=== PATIENT | female | born 1945 | race Caucasian/White ===

== ENCOUNTER 2021-02-14 16:13 | Emergency (ER) | payer OTHER ==
--- NOTE | 2021-02-14 17:49 | RAD REPORT ---
EXAM DESCRIPTION: USExtremity Venous Uni Ltd02/14/2021 5:25 pm CLINICAL HISTORY: left leg pain COMPARISON: None. FINDINGS: Left common femoral, superficial femoral, popliteal and posterior tibial veins are compre ssible and demonstrate augmentation. Doppler demonstrates good flow. IMPRESSION: No evidence of deep venous thrombosis involving the left lower extremity.
--- NOTE | 2021-02-14 18:23 | EDPHYS ---
Physician Documentation [facility] Name: Oliva Franklin Age: 75 yrs Sex: Female : 1945 Arrival Date: 02/14/2021 Time: 16:18 Bed 18 Private MD: ED Physician Paul Cheema HPI: 02/14 18:16 This 75 yrs old Female presents to ER via Wheelchair with complaints of Leg jmm Pain. 18:16 The patient presents with pain. Onset: The symptoms/episode began/occurred 3 day(s) jmm ago. Modifying factors: The symptoms are alleviated by remaining still, the symptoms are aggravated by movement. Associated signs and symptoms: Pertinent negatives fever, swelling, tingling, vomiting, warmth, weakness. This is a 75 year old female with a history of hlp, CVA, HTN that presents to the ED with complaints of left thigh pain beginning approx 3 days ago. Denies known injury. Was evaluated in [place] with negative xray. Family concerned patient may have a dvt.. Historical: - Allergies: 16:47 No Known Allergies; aa5 - PMHx: 16:47 Hypertension; Hyperlipidemia; aa5 16:47 CVA; aa5 - Immunization history:: Adult Immunizations unknown. - Social history:: Smoking status: Patient denies any tobacco usage or history of. ROS: 18:16 Constitutional: Negative for fever, chills, and weight loss, Cardiovascular: Negative jmm for chest pain, palpitations, and edema, Respiratory: Negative for shortness of breath, cough, wheezing, and pleuritic chest pain. 18:16 MS/extremity: Positive for pain. 18:16 All other systems are negative. Exam: 18:16 Constitutional: This is a well developed, well nourished patient who is awake, alert, jmm and in no acute distress. Head/Face: atraumatic. Eyes: EOMI, no conjunctival erythema appreciated ENT: Moist Mucus Membranes Neck: Trachea midline, Supple Chest/axilla: Normal chest wall appearance and motion. Cardiovascular: Regular rate and rhythm. No edema appreciated Respiratory: Normal respirations, no respiratory distress appreciated Abdomen/GI: Non distended, soft Back: Normal ROM Skin: General appearance color normal 18:16 Musculoskeletal/extremity: left thigh pain on rom of the left hip, compartments are soft, dorsalis pulse intact, NVI. 18:16 Skin: Appearance: Color: normal in color. 18:16 Neuro: Orientation: is normal, Mentation: is normal, Memory: is normal. 18:16 Psych: Behavior/mood is pleasant, cooperative. Vital Signs: 16:45 BP 126 / 43; Pulse 87; Resp 18 S; Temp 98.2(TE); Pulse Ox 98% on R/A; Weight 58.97 kg aa5 (R); Height 5 ft. 1 in. (154.94 cm) (R); 16:45 Body Mass Index 24.56 (58.97 kg, 154.94 cm) aa5 MDM: 17:48 Patient medically screened. [facility] 18:19 Data reviewed: vital signs, nurses notes. Counseling: I had a detailed discussion with melissa the patient and/or guardian regarding: the historical points, exam findings, and any diagnostic results supporting the discharge/admit diagnosis, lab results, radiology results, the need for outpatient follow up, to return to the emergency department if symptoms worsen or persist or if there are any questions or concerns that arise at home. ED course: Patient is alert and non toxic in appearance in the ED. No signs of sepsis. US negative. patient advised to follow up with ortho and otherwise given strict return precautions. patient understood and agrees with the plan of care. . 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 . 02/14 16:49 Order name: US Extremity Venous Unilateral Ltd; Complete Time: 17:51 aa5 Administered Medications: No medications were administered Disposition: 02/14/21 18:23 Discharged to Home. Impression: Strain of muscle, fascia and tendon of left hip. - Condition is Stable. - Discharge Instructions: Hip Pain. - Prescriptions for Tylenol- Codeine #3 300-30 mg Oral Tablet - take 1 tablet by ORAL route every 4-6 hours As needed; 12 tablet. orphenadrine citrate 100 mg Oral Tablet Sustained Release - take 1 tablet by ORAL route 2 times per day As needed; 20 tablet. - Medication Reconciliation Form, Thank You Letter, Antibiotic Education, Prescription Opioid Use form. - Follow up: Tyrel Mckinney MD; When: 1 - 2 days; Reason: Recheck today's complaints, Continuance of care, Re-evaluation by your physician. Follow up: Seferino Strickland MD; When: 1 - 2 days; Reason: Recheck today's complaints, Continuance of care, Re-evaluation by your physician. Follow up: Carter Neri MD; When: 1 - 2 days; Reason: Recheck today's complaints, Continuance of care, Re-evaluation by your physician. Addendum: 02/16/2021 07:49 Co-signature as Attending Physician, Paul Cheema MD I agree with the assessment and c pavon plan of care. Signatures: Dispatcher [employer] EDNC Paul Cheema MD MD cha Mickail, Joel, PA PA jmm Calderon, Audri, RN RN aa5 Noemi Ghosh RN RN tr6 Corrections: (The following items were deleted from the chart) 02/14 19:08 18:23 02/14/2021 18:23 Discharged to Home. Impression: Strain of muscle, fascia and tr6 tendon of left hip. Condition is Stable. Forms are Medication Reconciliation Form, Thank You Letter, Antibiotic Education, Prescription Opioid Use. Follow up: Dr. Tyrel Mckinney; When: 1 - 2 days; Reason: Recheck today's complaints, Continuance of care, Re-evaluation by your physician. Follow up: Seferino Strickland; When: 1 - 2 days; Reason: Recheck today's complaints, Continuance of care, Re-evaluation by your physician. Follow up: Carter Neri; When: 1 - 2 days; Reason: Recheck today's complaints, Continuance of care, Re-evaluation by your physician. [facility]
--- NOTE | 2021-02-14 18:23 | ER ---
Nurse's Notes [facility] Name: Oliva Franklin Age: 75 yrs Sex: Female : 1945 Arrival Date: 02/14/2021 Time: 16:18 Bed 18 Private MD: Diagnosis: Strain of muscle, fascia and tendon of left hip Presentation: 02/14 16:45 Chief complaint: Patient states: left leg pain that began "months ago". Pt reports aa5 getting worse. Pt reports she flew to [place] 1 week ago, had x-ray and CT scan in [place] without significant findings. Coronavirus screen: Client denies travel out of the [place] in the last 14 days. Ebola Screen: Patient negative for fever greater than or equal to 101.5 degrees Fahrenheit, and additional compatible Ebola Virus Disease symptoms. Initial Sepsis Screen: Does the patient meet any 2 criteria? No. Patient's initial sepsis screen is negative. Does the patient have a suspected source of infection? No. Patient's initial sepsis screen is negative. Risk Assessment: Do you want to hurt yourself or someone else? Patient reports no desire to harm self or others. Onset of symptoms is unknown. 16:45 Method Of Arrival: Wheelchair aa5 16:45 Acuity: CATALINO 3 aa5 Historical: - Allergies: 16:47 No Known Allergies; aa5 - PMHx: 16:47 Hypertension; Hyperlipidemia; aa5 16:47 CVA; aa5 - Immunization history:: Adult Immunizations unknown. - Social history:: Smoking status: Patient denies any tobacco usage or history of. Vital Signs: 16:45 BP 126 / 43; Pulse 87; Resp 18 S; Temp 98.2(TE); Pulse Ox 98% on R/A; Weight 58.97 kg aa5 (R); Height 5 ft. 1 in. (154.94 cm) (R); 16:45 Body Mass Index 24.56 (58.97 kg, 154.94 cm) aa5 ED Course: 16:18 Patient arrived in ED. rg4 16:45 Arm band placed on. aa5 16:47 Triage completed. aa5 17:25 US Extremity Venous Unilateral Ltd In Process Unspecified. EDMS 17:45 Noemi Ghosh RN is Primary Nurse. tr6 17:48 Jose R Laboy PA is PHCP. [facility] 17:48 Paul Cheema MD is Attending Physician. jmm 18:22 Tyrel Mckinney MD is Referral Physician. jmm 18:22 Seferino Strickland MD is Referral Physician. jmm 18:23 Carter Neri MD is Referral Physician. jmm Administered Medications: No medications were administered Outcome: 18: Discharge ordered by MD. jmm 19:08 Patient left the ED. tr6 Signatures: Dispatcher [employer] EDMS Jose R Laboy PA PA jmSharee Lee, RN RN Lindsay Banda 4 Noemi Ghosh RN RN tr6
[2021-02-14 19:17] VITALS: BP 126/43; TEMP 98.2; O2SAT 98
== END 2021-02-14 19:08 | disposition home or self-care (01) ==
LOC: ER 16:13
DX: S76.012A Strain of muscle, fascia and tendon of left hip, initial encounter (principal); I10 Essential (primary) hypertension; Z86.73 Personal history of transient ischemic attack (TIA), and cerebral infarction without residual deficits
CPT/HCPCS: 93971; 99282

== ENCOUNTER 2023-02-21 21:53 | Emergency (ER) | payer OTHER ==
[2023-02-21] MEDS ORDERED: ACETAMINOPHEN 500 MG TAB ONE (22:27)
[2023-02-21 22:45] LABS: Absolute Lymphocytes (CBC) 2.7 K/uL (0.7-4.9); Hematocrit 39.7 % (36.0-45.0); Lymphocytes % 33.2 % (15.3-44.8); MCV 89.2 fL (80-100); MPV 6.4 fL (7.6-11.3); RBC Red Blood Cell Count 4.45 M/uL (3.86-4.86)
--- NOTE | 2023-02-21 22:49 | RAD REPORT ---
EXAM DESCRIPTION: Claudia Single View02/21/2023 10:36 pm CLINICAL HISTORY: CHEST PAIN COMPARISON: No comparisons TECHNIQUE: Portable AP view of the chest. FINDINGS: The lungs are clear. No pneumothorax or effusion. The cardiomediastinal contours are unre markable. IMPRESSION: No acute cardiopulmonary process.
[2023-02-21 22:59] LABS: Albumin 3.5 g/dL (3.4-5.0); Bilirubin Total 0.9 mg/dL (0.2-1.0); Potassium 3.9 mEq/L (3.5-5.1); Protein, Total 7.5 g/dL (6.4-8.2); Troponin High Sensitivity 5.4 pg/mL (<58.9)
--- NOTE | 2023-02-22 00:55 | ER ---
Nurse's Notes [facility] Name: Oliva Franklin Age: 77 yrs Sex: Female : 1945 Arrival Date: 02/21/2023 Time: 21:53 Bed 7 Private MD: Diagnosis: Chest pain, unspecified Presentation: 02/21 21:59 Chief complaint: EMS states: She has left arm pain that started shortly after she was kd3 done eating dinner. She had no injury that she knows of. She does have a previous history of a stroke 3 years ago. She feels fine otherwise. We gave 324 of aspirin in route. Coronavirus screen: Vaccine status: Patient reports receiving the 2nd dose of the covid vaccine. Ebola Screen: No symptoms or risks identified at this time. Initial Sepsis Screen: Does the patient meet any 2 criteria? No. Patient's initial sepsis screen is negative. Does the patient have a suspected source of infection? No. Patient's initial sepsis screen is negative. Risk Assessment: Do you want to hurt yourself or someone else? Patient reports no desire to harm self or others. Onset of symptoms was February 21, 2023. 21:59 Method Of Arrival: EMS: [facility] kd3 21:59 Acuity: CATALINO 3 kd3 Triage Assessment: 22:01 General: Appears in no apparent distress. Behavior is calm, cooperative. Pain: kd3 Complains of pain in left arm. Neuro: Level of Consciousness is awake, alert, obeys commands, Oriented to person, place, time, situation. Historical: - PMHx: 22:01 CVA; Hyperlipidemia; Hypertension; kd3 - Immunization history:: Adult Immunizations up to date. - Social history:: Smoking status: Patient denies any tobacco usage or history of. - Family history:: not pertinent. Screenin/14 00:35 [facility] ED Fall Risk Assessment (Adult) History of falling in the last 3 months, ll3 including since admission No falls in past 3 months (0 pts) Confusion or Disorientation No (0 pts) Intoxicated or Sedated No (0 pts) Impaired Gait No (0 pts) Mobility Assist Device Used No (0 pt) Altered Elimination No (0 pt) Score/Fall Risk Level 0 - 2 = Low Risk Oriented to surroundings, Maintained a safe environment, Educated pt \\T\\ family on fall prevention, incl call for assistance when getting out of bed. Abuse screen: Denies threats or abuse. Denies injuries from another. Nutritional screening: No deficits noted. Tuberculosis screening: No symptoms or risk factors identified. Assessment: 02/21 22:23 General: Appears uncomfortable, well groomed, Behavior is calm, cooperative. General: aa9 pt refused 1000 mg Tylenol, states,"I already took so many pills, I would like to just take one 500 mg Tylenol pill." . Neuro: Level of Consciousness is awake, alert, obeys commands, Oriented to person, place, time, situation. Respiratory: Airway is patent Respiratory effort is even, unlabored. Musculoskeletal: Reports pain in Right shoulder. 02/22 00:53 Reassessment: Patient appears in no apparent distress at this time. Uday TINAJERO at aa9 bedside. Vital Signs: 02/21 21:59 BP 128 / 64; Pulse 80; Resp 19; Temp 97.7(O); Pulse Ox 100% on R/A; Weight 68.04 kg; kd3 Height 5 ft. 1 in. ; 22:00 BP 123 / 56; Pulse 74; Resp 16 S; Pulse Ox 97% on R/A; aa9 23:00 BP 125 / 59; Pulse 74; Resp 16; Pulse Ox 100% ; ll3 02/22 00:35 BP 104 / 79; Pulse 80; Resp 20; Pulse Ox 98% on R/A; ll3 01:07 BP 104 / 79; Pulse 77; Resp 16 S; Pulse Ox 97% ; as7 02/21 21:59 Body Mass Index 28.34 (68.04 kg, 154.94 cm) kd3 ED Course: 02/21 21:57 Patient arrived in ED. kd3 21:58 Anthony Frye MD is Attending Physician. rt 22:01 Triage completed. kd3 22:01 Arm band placed on right wrist. kd3 22:37 Chest Single View XRAY In Process Unspecified. EDMS 02/22 00:36 Patient has correct armband on for positive identification. Bed in low position. Call ll3 light in reach. Side rails up X 1. Adult w/ patient. 00:36 No provider procedures requiring assistance completed. ll3 00:54 Todd Ashley MD is Referral Physician. rt 01:07 IV discontinued, intact, bleeding controlled, No redness/swelling at site. Pressure ll3 dressing applied. Administered Medications: 02/21 22:22 Not Given (Patient Refused): Acetaminophen PO 1000 mg PO once aa9 22:23 Drug: Acetaminophen PO 500 mg Route: PO; aa9 02/22 01:07 Follow up: Response: No adverse reaction; Pain is decreased ll3 Medication: 00:36 VIS not applicable for this client. ll3 Outcome: 00:54 Discharge ordered by . rt 01:07 Discharged to home ambulatory, with family. ll3 01:07 Condition: stable 01:07 Discharge instructions given to patient, family, Instructed on discharge instructions, follow up and referral plans. Demonstrated understanding of instructions, follow-up care. 01:08 Patient left the ED. ll3 Signatures: Dispatcher [employer] EDMS Deepika Espinoza RN RN ll3 Arina Chavez RN RN kd3 Zoe Sherwood RN RN aa9 Anthony Frye MD MD rt Venecia, Terri as7
--- NOTE | 2023-02-22 00:55 | EDPHYS ---
Physician Documentation [facility] Name: Oliva Franklin Age: 77 yrs Sex: Female : 1945 Arrival Date: 02/21/2023 Time: 21:53 Bed 7 Private MD: ED Physician Anthony Frye HPI: 02/22 00:57 This 77 yrs old Female presents to ER via EMS with complaints of Arm Pain. rt 00:57 Patient presents to the ED with chest pain radiating to the left arm starting about 8 rt PM. It was not exertional in nature. She denies having other acute complaints. States the pain is moderate severity, aching nature, no other aggravating or alleviating factors. Denies any injury.. Historical: - PMHx: 02/21 22:01 CVA; Hyperlipidemia; Hypertension; kd3 - Immunization history:: Adult Immunizations up to date. - Social history:: Smoking status: Patient denies any tobacco usage or history of. - Family history:: not pertinent. ROS: 02/22 00:57 Constitutional: Negative for fever, chills, and weight loss, Respiratory: Negative for rt shortness of breath, cough, wheezing, and pleuritic chest pain, Abdomen/GI: Negative for abdominal pain, nausea, vomiting, diarrhea, and constipation, Skin: Negative for injury, rash, and discoloration, Neuro: Negative for headache, weakness, numbness, tingling, and seizure, Psych: Negative for depression, anxiety, suicide ideation, homicidal ideation, and hallucinations. Cardiovascular: Positive for chest pain, Negative for edema. MS/extremity: Positive for pain, Negative for injury or acute deformity. Exam: 00:57 Constitutional: This is a well developed, well nourished patient who is awake, alert, rt and in no acute distress. Head/Face: Normocephalic, atraumatic. Chest/axilla: Normal chest wall appearance and motion. Nontender with no deformity. No lesions are appreciated. Cardiovascular: Regular rate and rhythm with a normal S1 and S2. No gallops, murmurs, or rubs. Normal PMI, no JVD. No pulse deficits. Respiratory: Lungs have equal breath sounds bilaterally, clear to auscultation and percussion. No rales, rhonchi or wheezes noted. No increased work of breathing, no retractions or nasal flaring. Abdomen/GI: Soft, non-tender, with normal bowel sounds. No distension or tympany. No guarding or rebound. No evidence of tenderness throughout. Skin: Warm, dry with normal turgor. Normal color with no rashes, no lesions, and no evidence of cellulitis. MS/ Extremity: Pulses equal, no cyanosis. Neurovascular intact. Full, normal range of motion. Neuro: Awake and alert, GCS 15, oriented to person, place, time, and situation. Cranial nerves II-XII grossly intact. Motor strength 5/5 in all extremities. Sensory grossly intact. Cerebellar exam normal. Normal gait. Psych: Awake, alert, with orientation to person, place and time. Behavior, mood, and affect are within normal limits. 00:57 ECG was reviewed by the Attending Physician. Vital Signs: 02/21 21:59 BP 128 / 64; Pulse 80; Resp 19; Temp 97.7(O); Pulse Ox 100% on R/A; Weight 68.04 kg; kd3 Height 5 ft. 1 in. ; 22:00 BP 123 / 56; Pulse 74; Resp 16 S; Pulse Ox 97% on R/A; aa9 23:00 BP 125 / 59; Pulse 74; Resp 16; Pulse Ox 100% ; ll3 02/22 00:35 BP 104 / 79; Pulse 80; Resp 20; Pulse Ox 98% on R/A; ll3 01:07 BP 104 / 79; Pulse 77; Resp 16 S; Pulse Ox 97% ; as7 02/21 21:59 Body Mass Index 28.34 (68.04 kg, 154.94 cm) kd3 MDM: 02/21 21:58 Patient medically screened. rt 02/22 00:57 Differential diagnosis: Acute coronary syndrome, musculoskeletal pain, pneumonia, rt pneumothorax, dysrhythmia. Data reviewed: vital signs, nurses notes. Consideration of Admission/Observation Escalation of care including admission/observation considered. Discussed admission with the patient, discussed that cardiac etiology has not been completely excluded. Patient still states that she is strongly desirous of discharge, repeat troponin is unremarkable, she remains pain-free in the ED. She will follow-up as an outpatient with cardiology, strict return precautions for cardiac symptoms were discussed with patient. She verbalized understanding and is comfortable with this plan.. Independent interpretation of the following test(s) in the Emergency Department X-Ray: My interpretation is No consolidation seen on interpretation of the x-ray images. Test considered but Not performed: CT: Low suspicion for pulmonary embolism, CT angiogram not indicated. Care significantly affected by the following chronic conditions: Hypertension. 02/21 22:06 Order name: CBC with Diff; Complete Time: 22:53 rt 02/21 22:06 Order name: CMP; Complete Time: 23:03 rt 02/21 22:06 Order name: Troponin High Sensitivity; Complete Time: 23:03 rt 02/21 23:39 Order name: Troponin High Sensitivity; Complete Time: 00:52 ll3 02/21 22:06 Order name: Chest Single View XRAY; Complete Time: 22:53 rt EC:57 Rate is 82 beats/min. Rhythm is regular, Normal Sinus Rhythm with No ectopy. QRS [place] rt is Normal. ND interval is normal. QRS interval is normal. QT interval is normal. No Q waves. T waves are Normal. No ST changes noted. Interpreted by me. Administered Medications: 02/21 22:22 Not Given (Patient Refused): Acetaminophen PO 1000 mg PO once aa06 02: Drug: Acetaminophen PO 500 mg Route: PO; aa9 02/22 01:07 Follow up: Response: No adverse reaction; Pain is decreased ll3 Disposition Summary: 02/22/23 00:54 Discharge Ordered Location: Home rt Problem: new rt Symptoms: are resolved rt Condition: Stable rt Diagnosis - Chest pain, unspecified rt Followup: rt - With: Todd Ashley MD - When: 2 - 3 days - Reason: Discharge Instructions: - Discharge Summary Sheet rt - Nonspecific Chest Pain, Adult rt Forms: - Medication Reconciliation Form rt - Thank You Letter rt - Antibiotic Education rt - Prescription Opioid Use rt Signatures: Dispatcher [employer] Arina García RN RN kd3 Zoe Sherwood RN RN aa9 Anthony Frye MD MD rt Deepika Espinoza RN ll3
[2023-02-22 01:13] VITALS: TEMP 97.7
[2023-02-22 01:17] VITALS: BP 104/79
[2023-02-22 01:18] VITALS: O2SAT 97
--- NOTE | 2023-02-23 13:57 | EKG ---
Test Date: 2023-02-21 Test Time: 22:03:42 Insurance Verification Representative: MEASUREMENT RESULTS: Intervals: Rate: 82 ME: 186 QRSD: 72 QT: 334 QTc: 390 [place]: P: 70 ME: 186 QRS: 27 T: 59 INTERPRETIVE STATEMENTS: Normal sinus rhythm Low voltage QRS Borderline ECG No previous ECG available for comparison Electronically Signed On 02-23-23 13:55:32 CDT by Todd Ashley
== END 2023-02-22 01:08 | disposition home or self-care (01) ==
LOC: ER 21:53
DX: R07.9 Chest pain, unspecified (principal); I10 Essential (primary) hypertension; E78.5 Hyperlipidemia, unspecified; Z86.73 Personal history of transient ischemic attack (TIA), and cerebral infarction without residual deficits
CPT/HCPCS: 36415; 71045; 80053; 84484; 85025; 93005; 99284